=== PATIENT | female | born 1950 | race Caucasian/White ===

== ENCOUNTER 2019-01-02 10:03 | Day surgery (SDC) | payer MEDICARE, OTHER, SELFPAY ==
--- NOTE | 2019-01-02 | TISS_PTH ---
PATIENT: YONAS PARIKH LOC: [facility] [place] U#:[id number] AGE/SX: 68/F ROOM: RE01/02/[address]: Dr. Donnell Macario MD : 1950 BED: DIS: 01/02/2019 SPEC #: [id number] RECD: 01/02/19 14:47 STATUS: AD REHarper #: [id number] CALVIN: 01/02/19 00:[address]: Donnell Macario DEPT: SURGICAL PATHOLOGY RECD BY: Shawn Vega ENTERED: 01/02/19 14:47 SP TYPE: Tissue Bx JONO DR: Dr. Edilson Keating MD Tissues: TISSUE SURGICALLY REMOVED Procedures: Surgery Specimen Level IV HEADER OPERATION: Tympanoplasty PRE-OP DIAGNOSIS: Stenosis of external auditory canal, left; chronic otitis externa, left; mixed conductive and sensorineural hearing loss, bilateral TISSUE SUBMITTED: Soft tissue from left external auditory canal MICROSCOPIC DIAGNOSIS Soft tissue, left external auditory canal, biopsy: Fibrous tissue with mild chronic inflammation. Minute fragments of bone with no pathologic change. Minute fragment of skin with no pathologic change. AM:megan 01/05/19 MICROSCOPIC DESCRIPTION Slides are reviewed. GROSS DESCRIPTION Received in fixative is one container labeled with the patient's name and designated Soft tissue from left external auditory canal. The specimen consists of two irregular fragments of bazan-pink soft tissue that in aggregate measure 1 x 0.2 x 0.1 cm. The specimen is totally submitted in one cassette. / AWILDA:megan 01/02/19 TC:5 CPT: 15757
--- NOTE | 2019-01-02 10:20 | EKG12_ITS ---
Test Reason : PRE OP Blood Pressure : / mmHG Vent. Rate : 088 BPM Atrial Rate : 088 BPM P-R Int : 166 ms QRS Dur : 082 ms QT Int : 372 ms P-R-T Axes : 077 011 068 degrees QTc Int : 450 ms Normal sinus rhythm Normal ECG When compared with ECG of 14-AUG-2014 17:26, Nonspecific T wave abnormality no longer evident in Anterolateral leads Confirmed by GRACE GARRISON, CHRISTINE ([id number]), mapping editor YEFRI ANDERS ([id number]) on 01/13/2019 1:39:29 PM Referred By: Donnell Macario Confirmed By:PERRI EDWARDS MD
[2019-01-02 10:42] VITALS: BP 128/97; PULSE 73; RESP 16; TEMP 36.4; O2SAT 96; BMI 18.4
[2019-01-02] MEDS: Lactated Ringers 1,000 ML 100 ML IV ×2 (11:05→13:00)
[2019-01-02] MEDS: Triamcinolone Acetonide 40 MG/ML Vial (12:50)
--- NOTE | 2019-01-02 13:06 | OP.PCM_ITS ---
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 This is resulted in progressive inflammatory stenosis of the left external canal with complete occlusion. CT scan confirmed this was localized to the external auditory canal and the above procedure was offered in hopes of pentecostal of ability to use a hearing aid in that ear. The risks, alternatives, potential complications, and benefits were discussed at length and any questions answered to the patient and/or caregiver's satisfaction. Witnessed informed consent was obtained in the office, and the patient and/or caregiver was agreeable to proceed. Procedure went as follows: The patient was identified in the preoperative holding brought to the operating room and was placed under general anesthesia and intubated. The operative ear had been site marked preoperatively in accordance with the office notes patient exam and history. The patient was then placed under general anesthesia and the left ear prepped and draped in usual sterile fashion. The facial nerve monitoring electrodes were then placed in the confirmed to be operational in accordance with the manufactures directions. Through a #6 otic speculum the operative microscope was brought into the field and the external auditory canal visualized. This was noted to be completely obstructed with scar tissue. The lateral canal wall was then injected with 1% lidocaine with 100,000 epinephrine for a total of 0.5 cc. Using a stapes curette the soft tissue was then gently scraped away along the posterior half of the external auditory canal where a normal-appearing tympanic membrane was encountered. The excess soft tissue was then removed with a portion sent for pathologic specimen with a cup forceps. After removing the bulk of the obs tructing scar tissue and epinephrine soaked cotton balls in place for hemostasis. Upon removal topical Kenalog was then applied and a ivelisse pack performed of Xeroform gauze strips around a cotton ball was then placed as an obturator to reduce repair. Stenosis and formation of the occluding soft tissues. The patient then cleaned of prep solution and the facial nerve monitoring electrodes removed. The patient was then returned to anesthesia, revived and extubated without complication having tolerated the procedure well. Type of Anesthesia:: General Anesthesiologist: Siddhartha Swanson Special Medications: Kenalog Specimen's removed: soft tissue of external auditory canal Drains: none Estimated Blood Loss (mL): 0 mL Fluids Replaced: 1000 mL Grafts/Implants Used: none - Complications none - Admit VTE Documentation VTE Present on Admission: No VTE Mechan Device Prophylaxis: SCD's VTE Pharm Prophylaxis ordered?: No
[2019-01-02 13:12] VITALS: BP 128/97; BP 153/97; PULSE 98; RESP 16; TEMP 36.1; O2SAT 93
--- NOTE | 2019-01-02 13:24 | DCINST_ITS ---
- Discharge Diagnoses Current Active Problems: Current Active and Chronic Problems Acquired stenosis of left external ear canal (Acute) You will use the following diet at home:: No restrictions Discharge Activity: Return to Normal Activity Call your doctor if your incision/area has: Increased Pain/ Swelling, Foul Smelling Discharge Call your doctor if you observe: Fever of 101 or Higher, Uncontrolled pain Allergies/Adverse Reactions: Allergies Sulfa (Sulfonamide Antibiotics) Allergy (Intermediate, Verified 01/02/19 10:41) Hives aluminum hydroxide [From Maalox Advanced] Adverse Reaction (Mild, Verified 01/02/19 10:41) Diarrhea calcium carbonate [From Maalox Advanced] Adverse Reaction (Mild, Verified 01/02/19 10:41) Diarrhea magnesium hydroxide [From Maalox Advanced] Adverse Reaction (Mild, Verified 01/02/19 10:41) Diarrhea naproxen sodium [From Aleve] Adverse Reaction (Mild, Verified 01/02/19 10:41) Nausea JUST PRESCRIPTION STRENGTH ALEVE simethicone [From Maalox Advanced] Adverse Reaction (Mild, Verified 01/02/19 10:41) Diarrhea Medications to take at Discharge Levothyroxine [Synthroid] 100 mcg PO DAILY 05/02/13 Citalopram [Celexa] 5 mg PO BID 08/14/14 Lisinopril 20 mg PO DAILY 01/01/19 Ranitidine [Zantac] 150 mg PO BID 01/01/19 Primary Care Physician: Edilson Keating MD [Primary Care Provider] - Test Results: Test results from this visit will be discussed in further detail at your follow- up appointment, if applicable. Please Follow Up With: Donnell Macario MD When: 3 days
[2019-01-02 13:30] VITALS: BP 128/97; BP 163/108; PULSE 95; RESP 16; O2SAT 95
[2019-01-02 13:45] VITALS: BP 128/97; BP 148/105; PULSE 95; RESP 16; TEMP 36.6; O2SAT 97
[2019-01-02 14:28] VITALS: BP 128/97; BP 146/100; PULSE 94; RESP 16; TEMP 36.9; O2SAT 93
== END 2019-01-02 14:42 | disposition home or self-care (01) ==
LOC: SDC 10:04 → AC 10:08
PROVIDERS: Family Provider Family Medicine; PCP Family Medicine; Referring Provider Otolaryngology; Visit Provider Otolaryngology
PROC: (CPT 69631; principal; 2019-01-02 11:15)
DX: H61.302 Acquired stenosis of left external ear canal, unspecified (principal); H60.63 Unspecified chronic otitis externa, bilateral; H90.3 Sensorineural hearing loss, bilateral; H90.A32 Mixed conductive and sensorineural hearing loss, unilateral, left ear with restricted hearing on the contralateral side; Z87.891 Personal history of nicotine dependence; K21.9 Gastro-esophageal reflux disease without esophagitis
CPT/HCPCS: 00120; 69631; 88305; 93005; J7120; J2405

== ENCOUNTER 2019-09-30 14:03 | Emergency (ER) | payer MEDICARE, OTHER, SELFPAY ==
[2019-09-30 14:04] VITALS: BP 146/109; PULSE 128; RESP 18; TEMP 37.4; O2SAT 93; BMI 19.1
--- NOTE | 2019-09-30 14:37 | CT_ITS ---
STUDY: CT ABDOMEN AND PELVIS WITHOUT CONTRAST REASON FOR EXAM: Female, 69 years old. GENERALIZED abdominal pain RADIATION DOSAGE (If Supplied By Facility): CTDIvol = ( 9.825 ) mGy, DLP = ( 442.83 ) mGycm TECHNIQUE: Transaxial images were obtained from the dome of the diaphragm to the symphysis pubis without oral contrast, and without intravenous contrast. Sagittal and coronal images were reconstructed. Individualized dose optimization techniques were used for this CT. COMPARISON: 08/14/2014 FINDINGS: Within the left lower lobe there is a stable 14.8 mm nodule. There are additional stable bilateral tree-in-bud opacities. The visualized portions of the heart are within normal limits. Normal liver. The gallbladder is contracted. Normal spleen. There is stable prominence of the pancreatic duct. Normal bilateral adrenal glands. There are bilateral renal calculi including a 9.8 mm calculus within the right renal pelvis and a 3.8 mm calculus within the left kidney. There are bilateral renal cysts. There is mild thickening with increased enhancement of the right renal pelvis. There is mild left-sided pelvicaliectasis. Normal visualized stomach. Normal small intestine. There is incomplete distention of the colon. There is circumferential wall thickening of the sigmoid colon. The appendix is visualized and appears normal. Normal abdominal aorta. Normal inferior vena cava. Normal retroperitoneum. Normal urinary bladder. Normal abdominal wall. There are diffuse degenerative changes of the visualized lumbar spine. CT/Abdomen/Pelvis W IV Cont ONLY IMPRESSION: Thickening and increased enhancement of the right renal pelvis, may be secondary to early pyelonephritis. Bilateral nonobstructing renal calculi measuring up to 9.8 mm on the right. Mild left pelvicaliectasis. Circumferential wall thickening of the sigmoid colon, this may be partially secondary to its incompletely distended state however cannot exclude underlying colitis. Stable tree-in-bud opacities associated with a stable 14.8 mm left lower lobe nodule since 08/14/2014 suggesting a benign process. Electronically Signed: Domonique Restrepo MD at 16:52 EDT Tel , Service support ,
[2019-09-30 14:39] VITALS: BP 146/109; PULSE 128; RESP 18; TEMP 37.4; O2SAT 93
--- NOTE | 2019-09-30 14:42 | ED.VISSUMM ---
- ER Visit Summary Date of Service: 09/30/19 Chief Complaint: Epigastric abdominal pain History of Present Illness: The patient is a [address] hypertension COPD not on oxygen. Prior appendectomy, 2 exploratory laparotomies and some type of stomach surgery possibly for an ulcer. Patient states last month she has had intermittent epigastric abdominal pain. Nothing particular makes it better or worse. There is some improvement with antacids. She denies any nausea, vomiting or diarrhea. She has chronic constipation is not specifically changed. She did have a bowel movement today. Took a laxative 1 to 2 days ago. Denies any fever or chills. No dysuria. No weight loss. She denies any back pain with this. Physical Examination: Older female no acute distress vital signs stable afebrile. HEENT exam unremarkable. Neck nontender no lymphadenopathy. Lungs clear to auscultation bilaterally. Heart tachycardic rate about 110 no murmur. Abdomen soft. Nondistended. Normal bowel sounds. No peritoneal signs. Both the right upper and right lower quadrants are unremarkable. No signs of obstruction. No obvious hernia. No obvious masses or pulsatile mass. She does have tenderness in the epigastric region. She is moving all 4 extremities. No edema. Back nontender. Neurologically she is awake and alert with no focal motor deficits. Test Results: CBC white count of 5. Hemoglobin 9.7. Chemistries unremarkable. BUN 28 creatinine 0.7. Gap of 3. Liver enzymes normal. Lipase 193. Abdomen and pelvis shows increased right renal pelvis. Bilateral stones nonobstructing. Sigmoid colon is thickened and there is a left nodular lesion in the lung which I think is benign and the patient knows about that and that is being evaluated. Urinalysis is pending is been checked out to the afternoon physician. Emergency Department Course and Treatment: Patient with a month history of epigastric pain that seemingly getting somewhat worse in the last week. No history of a GI bleed. Mildly tender in epigastric region only. Labs to be obtained. CAT scan. Since the history of this going on for a month and her age. She will be treated with a GI cocktail and Pepcid to see if that improves her symptoms in any way. Repeat exam at 4:22 PM patient is on her way to CAT scan. States she has gotten some improvement with a GI cocktail and Pepcid. We are awaiting the urine analysis and the CAT scan. Treatment Plan: Protonix daily. Follow-up with her doctor. Return if worse. Disposition: Discharge Impression: Acute epigastric abdominal pain uncertain etiology Acute gastritis This note was generated with [employer] dictation software. It may contain incorrect words, spelling, and punctuation that were not noted in review of the chart prior to signing ED Disposition - Plan for ED Patient: Referrals: Edilson Keating MD [Primary Care Provider] -
[2019-09-30 14:53] VITALS: BP 146/109; PULSE 128; RESP 18; TEMP 37.4; O2SAT 93
[2019-09-30 15:07] LABS: Absolute Lymphocyte Count 0.87 X10^3/uL (0.83-4.51); Absolute Neutrophil Count 3.6 X10^3/uL (2.0-7.7); Basophil# 0.07 X10^3/uL; Basophil% 1.4 % (0-1); Eosinophil# 0.19 X10^3/uL; Eosinophils% 3.7 % (0-5); Hematocrit 35.7 % (37-47); Hemoglobin 11.7 g/dL (12.0-15.0); Lymphocyte # 0.87 X10^3/ul (4.0); Lymphocyte % 17.1 % (19-41); Mean Corp Hgb Conc 32.8 g/dL (32-36); Mean Corpuscular Hgb 29.5 pg (27.0-32.0); Mean Corpuscular Volume 90.2 fL (81-99); Mean Platelet Vol. 10.2 fl (6.2-12.0); Monocyte# 0.39 X10^3/uL; Monocyte% 7.7 % (0-10); NRBC Flagged by Analyzer 0 % (0-5); Neutrophil # 3.55 X10^3/uL (2.7-7.7); Neutrophil % 69.7 % (47-70); Platelet Count 288 K/mm3 (150-450); RBC Distribution Width CV 13.1 % (11.6-14.6); RBC Distribution Width SD 43.1 fl (35.1-43.9); Red Blood Count 3.96 M/mm3 (4.2-5.4); White Blood Count 5.1 K/mm3 (4.4-11.0)
[2019-09-30] MEDS: Mag Hydrox/Al Hydrox/Simeth 30 ML UDC PO (15:14)
[2019-09-30] MEDS: 0.9% Normal Saline 1,000 ML 125 ML IV (15:15)
[2019-09-30] MEDS: Famotidine 20 MG Tablet 40 MG PO (15:17)
[2019-09-30 15:43] LABS: AST(SGOT) 15 U/L (15-37); Alanine Aminotransfer ALT/SGPT 15 U/L (13-56); Albumin, Serum 3.6 g/dL (3.2-5.0); Alkaline Phosphatase 108 U/L (45-117); Anion Gap 3 (5-15); BUN 28 mg/dL (7-18); BUN/Creat Ratio 38.8 RATIO (10-20); Bilirubin, Direct 0.12 mg/dL (0.00-0.30); Calcium,Total 9.5 mg/dL (8.5-10.1); Chloride 109 mmol/L (98-107); Creatinine, Serum 0.72 mg/dL (0.55-1.02); EST Glomerular Filtration Rate 86 mL/min (>60); Est Glom Filt Rate - Afr Amer 104 mL/min (>60); Glucose 103 mg/dL (74-106); Lipase 193 U/L (73-393); Potassium 3.6 mmol/L (3.5-5.1); Protein, Total 7.6 g/dL (6.4-8.2); Sodium Level 141 mmol/L (136-145)
--- NOTE | 2019-09-30 17:06 | ED.DEP ---
ED Disposition - Plan for ED Patient: Disposition: Home or Assisted Living Instructions: ED Abdominal Pain Unkn Cause Fem, ED Gastritis Prescriptions: Pantoprazole Sodium [Protonix] 40 mg PO DAILY #30 tab Prescription Printed Referrals: Edilson Keating MD [Primary Care Provider] - 3-5 Days Additional Instructions: Follow-up with your doctor to ensure you are improving. Protonix daily to treat possible gastritis which is irritation in your stomach or even an ulcer. You may need an upper scope to go down and look in your stomach to make sure you not developing an ulcer. Return emergency department if feeling worse, if you vomit blood or have black or bloody stool.
[2019-09-30 18:49] LABS: Bacteria 0 SEEN /hpf (None Seen); Mucous, Urine 0 SEEN /hpf (<or=2+); Squamous Epithelial Cells - UA 0 SEEN /hpf (5-10)
[2019-09-30 18:50] LABS: Color, Urine Yellow (Yellow); Glucose, Dipstick Normal (Normal); Ketone-Dipstick Negative (Negative); Leukocyte Esterase-Dipstick 25 /ul (Negative); Nitrite-Dipstick Negative (Negative); Occult Blood-Urine 50 /ul (Negative); Protein-Dipstick 30 mg/dl (Negative); Urine Bilirubin Dipstick Negative (Negative); Urine Clarity Clear (Clear); Urine Urobilinogen Normal (Normal)
[2019-09-30 18:56] LABS: Red Blood Cells-Urine 0-5 SEEN /hpf (0-5); White Blood Cells 0-5 SEEN /hpf (0-5)
[2019-09-30 19:23] VITALS: BP 145/64; PULSE 87; RESP 18; TEMP 36.6; O2SAT 98
== END 2019-09-30 19:34 | disposition home or self-care (01) ==
PROVIDERS: Emergency Provider Emergency Medicine; PCP Family Medicine
DX: R10.13 Epigastric pain (principal); K29.00 Acute gastritis without bleeding; I10 Essential (primary) hypertension; J44.9 Chronic obstructive pulmonary disease, unspecified; K59.09 Other constipation
CPT/HCPCS: 74177; 80048; 80076; 81001; 83690; 85025; 96360; 96361; 99283; J7030; Q9967; A4216

== ENCOUNTER → 2019-10-19 16:51 | Outpatient (CLI) | payer MEDICARE, OTHER, SELFPAY ==
[2019-09-30 14:04] VITALS: BMI 19.1
== END ==
PROVIDERS: PCP Family Medicine; Referring Provider Nurse Practitioner Adult Health; Visit Provider Nurse Practitioner Adult Health
DX: R31.0 Gross hematuria (principal)
CPT/HCPCS: 87086; 87088

== ENCOUNTER 2019-11-04 11:19 | Day surgery (SDC) | payer MEDICARE, OTHER, SELFPAY ==
[2019-11-04] VITALS (16 sets, daily range): BP systolic 126–176; BP diastolic 71–112; PULSE 78–125; RESP 14–18; TEMP 35.6–37.2; O2SAT 91–100; BMI 19.0
--- NOTE | 2019-11-04 11:28 | RAD_ITS ---
STUDY: X-RAY - ABDOMEN/PELVIS REASON FOR EXAM: Female, 69 years old. RIGHT KIDNEY STONE TECHNIQUE: Single AP view of the abdomen / pelvis. COMPARISON: None. FINDINGS: Normal visualized lung bases. There is an abundance of fecal material throughout the colon. 3 calcifications are seen overlying the lower pole calyx of the left kidney. The largest calcification measures 5.6 mm. Normal soft tissue structures. Normal visualized osseous structures. RAD/Abdomen Single View IMPRESSION: 3 intrarenal calculi are seen in the lower pole calyx of the left kidney. Large amount of fecal material is seen in the colon. Electronically Signed: Te Turner, at 15:50 EDT , Service support ,
[2019-11-04] MEDS: Lactated Ringers 1,000 ML 100 ML IV ×3 (12:16→16:18)
--- NOTE | 2019-11-04 12:31 | PCM.HP.STD ---
Problem List (1) Bilateral kidney stones Status: Acute History of Present Illness Date of Admission: 11/04/19 Chief Complaint: Bilateral kidney stones The patient is a 69 year old female who an x-ray was found to have a stone on the right side in the renal pelvis and also a stone in the left side the lower pole the kidney stones been giving her difficulties and pain off-and-on plan to treat both stones with shockwave lithotripsy. Past Medical History Allergies Sulfa (Sulfonamide Antibiotics) Allergy (Intermediate, Verified 10/27/19 08:27) Hives Home Medications: Ambulatory Orders Medication Instructions Recorded Levothyroxine [Synthroid] 100 mcg PO DAILY 05/02/13 Citalopram [Celexa] 5 mg PO BID 08/14/14 Lisinopril 20 mg PO DAILY 01/01/19 Pantoprazole Sodium [Protonix] 40 mg PO DAILY #30 tab 09/30/19 Alendronate Sodium [Fosamax] 70 mg PO PAREDES 10/27/19 Duloxetine HCl 30 mg PO DAILY 10/27/19 Ipratropium [place] 0.06% 2 spray NASAL BID 10/27/19 [ATROVENT NASAL SPRAY (g)] Ofloxacin 4 drp RIGHT EAR BID 10/27/19 Oxycodone HCl/Acetaminophen 1 tablet PO Q4H PRN PRN 5 Days #20 11/04/19 [Percocet 5/325] tablet Sulfamethoxazole/Trimethoprim 1 ea PO BID 11/04/19 [Sulfamethoxazole-Tmp Ds Tablet] Surgical History: no surgical history Smoking Status: Former smoker Tobacco Use: Non-smoker Review of Systems Constitutional: Denies: Chills, Fever, Weight Change HEENT: Denies: Head Aches, Sinus Congestion, Sinus Drainage Cardiovascular: Denies: Chest Pain, Palpitations Respiratory: Denies: Cough, Shortness of breath at rest, Sputum production Gastrointestinal: Denies: Abdominal Pain, Nausea, Vomiting Genitourinary: Denies: Dysuria Musculoskeletal: Denies: Joint Pain, Joint Tenderness Skin: Denies: Rash, Wounds Neurological: Denies: Numbness, Tingling, Focal weakness Psychiatric: Denies: Anxiety, Depression, Homicidal Ideations, Suicidal Ideations Hematologic/ Lymphatic: Denies: Easy Bruising, Easy Bleeding VTE Information - Inpt Only VTE Present on Admission: No Patient Problems: Active and Suspected Problems Bilateral kidney stones (Acute) - Physical Exam Vitals/I&O's: Oxygen Delivery Method Room Air Weight: 50.3 kg Body Mass Index (BMI) 19.0 General: Alert, Oriented x3, Cooperative HEENT: Atraumatic, PERRLA, EOMI, Normocephalic Neck: Supple, No JVD, Negative Carotid Bruits Lungs: Clear to auscultation, Normal air movement Cardiovascular: Regular rate, No murmurs Abdomen: Bowel Sounds Present, Soft, Non Tender Extremities: No edema, Capillary Refill Less than 3 Seconds Skin: No rashes, No breakdown Musculoskeletal: No Tenderness to Palpation of Joints or Extremities Neurological: Cranial nerves II-XII grossly intact Psych/Mental Status: Normal Affect, Appropriate Current Medications Lactated Ringer's () 1,000 mls @ 100 mls/hr IV .Q10H JENNIFER Last Admin: 11/04/19 12:16 Dose: 100 mls/hr Documented by: Assessment/Plan All Active Problems 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
--- NOTE | 2019-11-04 12:33 | DCINST_ITS ---
Discharge Diet: Light diet - advance as tolerated Discharge Activity: Return to Normal Activity Suture Line Care: Avoid Pulling/Pushing, Avoid Pinching/Bending Allergies/Adverse Reactions: Allergies Sulfa (Sulfonamide Antibiotics) Allergy (Intermediate, Verified 10/27/19 08:27) Hives Medications to take at Discharge Levothyroxine [Synthroid] 100 mcg PO DAILY 05/02/13 Citalopram [Celexa] 5 mg PO BID 08/14/14 Lisinopril 20 mg PO DAILY 01/01/19 Pantoprazole Sodium [Protonix] 40 mg PO DAILY #30 tab 09/30/19 Alendronate Sodium [Fosamax] 70 mg PO PAREDES 10/27/19 Duloxetine HCl 30 mg PO DAILY 10/27/19 Ipratropium [place] 0.06% [ATROVENT NASAL SPRAY (g)] 2 spray NASAL BID 10/27/19 Ofloxacin 4 drp RIGHT EAR BID 10/27/19 Oxycodone HCl/Acetaminophen [Percocet 5/325] 1 tablet PO Q4H PRN PRN 5 Days #20 tablet 11/04/19 Sulfamethoxazole/Trimethoprim [Sulfamethoxazole-Tmp Ds Tablet] 1 ea PO BID 11/04/19 The following prescriptions were given: Oxycodone HCl/Acetaminophen [Percocet 5/325] 1 tablet PO Q4H PRN PRN 5 Days #20 tablet PRN Reason: Pain Transmission Status: Sent to [facility] #44 Orders to be completed after discharge: Abdomen Single View [RAD] Time Frame: 11/04/19, Facility: [facility], Location: [facility] Primary Care Physician: Edilson Keating MD [Primary Care Provider] - Test Results: Test results from this visit will be discussed in further detail at your follow- up appointment, if applicable. Please Follow Up With: Lukasz Lagos MD When: in 2 weeks, please call to make an appointment.
[2019-11-04] MEDS: Cefazolin 2 GM in 0.9% Normal Saline 100 ML IV (13:10)
--- NOTE | 2019-11-04 14:45 | PCM.OPRPT ---
Problem List (1) Bilateral kidney stones Status: Acute Report of Operation Date of Procedure: 11/04/19 Pre-Operative Diagnosis: Left renal calculi and right renal calculi Post-Operative Diagnosis: The same Surgery/Procedure Performed:: Left extracorporeal shockwave lithotripsy and right extra corporeal shockwave lithotripsy Description of Surgical Findings:: 69-year-old female was taken back to the operating room after smooth induction of general anesthesia she was placed supine on the table we first found the stones in the left kidney and they were in the lower pole the left kidney once a stones in the F2 focal point of the machine we proceeded with shockwave lithotripsy and delivered a total of 3000 shockwaves of the stones stones broke up really nicely the was shocking at 90 shocks per minute and 5 to 7 kV. After the completion of that treatment we went to the right side we identified the stone in the right renal pelvis total of 3000 shockwaves, at 90 shocks per minute between 5 to 7 kV. At the end of the treatment both the stones broke up really well decided not to put any stents patient's anesthetic was reversed it did take about an hour and 10 minutes to treat both the stones and she was taken back to the PACU in good condition. Type of Anesthesia:: General - Then Drains: none - Admit VTE Documentation VTE Present on Admission: No VTE Mechan Device Prophylaxis: SCD's
[2019-11-04] MEDS: Ketorolac 15 MG/ML Vial IV (14:58)
[2019-11-04] MEDS: hydrALAZINE 20 MG/ML Vial 10 MG IV (15:50)
[2019-11-04] MEDS: Labetalol (Prefilled) 20 MG/4 ML 5 MG IV (17:07)
== END 2019-11-04 18:31 | disposition home or self-care (01) ==
LOC: SDC 11:19 → AC 11:20
PROVIDERS: Anesthesiology; PCP Family Medicine; Referring Provider Urology; Visit Provider Urology
PROC: (CPT 50590; principal; 2019-11-04 12:55)
DX: N20.0 Calculus of kidney (principal); Z87.891 Personal history of nicotine dependence; Z88.2 Allergy status to sulfonamides
CPT/HCPCS: 00873; 50590; 74018; 87635; C9803; J7120; J2405; U0003

== ENCOUNTER → 2019-11-16 09:05 | Outpatient (CLI) | payer MEDICARE, OTHER, SELFPAY ==
[2019-11-04 11:45] VITALS: BMI 19.0
--- NOTE | 2019-11-16 09:25 | RAD_ITS ---
STUDY: X-RAY - ABDOMEN/PELVIS REASON FOR EXAM: Female, 69 years old. BILATERAL KIDNEY STONE CHECK UP TECHNIQUE: Single AP view of the abdomen / pelvis. COMPARISON: Comparison is made with prior examination dated 11/04/2019. FINDINGS: Stable nodular scarring at the lung bases. There is a moderate amount of colonic fecal material. The previously seen calculi in the lower pole of the left kidney is decreased in size. Normal soft tissue structures. There are diffuse degenerative changes of the visualized lumbar spine. RAD/Abdomen Single View IMPRESSION: Interval decrease in size of the previously seen calculi in the lower pole of the left kidney. Electronically Signed: Te Turner, at 13:36 EDT , Service support ,
== END ==
PROVIDERS: PCP Family Medicine; Referring Provider Urology; Visit Provider Urology
DX: N20.0 Calculus of kidney (principal)
CPT/HCPCS: 74018